=== PATIENT | female | born 1960 | race Caucasian/White ===

== ENCOUNTER → 2018-12-05 | Outpatient (CLI) | payer SELFPAY ==
--- NOTE | 2018-12-05 16:00 | MRI_ITS ---
STUDY: MRI RIGHT MIDFOOT REASON FOR EXAM: Female, 57 years old. RIGHT midfoot charcot foot, pain RIGHT foot TECHNIQUE: Standardized fat and water weighted pulse sequences were obtained in all 3 orthogonal planes. COMPARISON: None. FINDINGS: There is moderate narrowing and subchondral cystic changes and spurring of the second TMT articulation. Moderate to severe degenerative changes are present at the third TMT articulation. The remaining TMT joints are normal. No occult fracture is seen. No soft tissue mass or fluid collection is present. Normal talonavicular articulation. Normal calcaneocuboid articulation. Normal navicular-cuneiform articulations. Normal intercuneiform articulations. Normal first tarsometatarsal articulation. Normal Lisfranc ligament. Normal cuboid fourth and cuboid fifth tarsometatarsal articulation. Normal first through fifth metatarsi. Normal tibialis anterior tendon. Normal extensor hallucis longus tendon. Normal extensor digitorum longus tendons. Normal peroneus longus tendon and distal insertion. Normal peroneus brevis tendon and distal insertion. Normal intrinsic muscles of the mid and forefoot region. Normal extensor digitorum brevis muscle. Normal subcutis adipose space. No demonstrated findings of Charcot arthropathy on this study. MRI/Lower Ext/No Jt/w/o IMPRESSION: 1. There is moderate narrowing and subchondral cystic changes and spurring of the second TMT articulation. 2. Moderate to severe degenerative changes are present at the third TMT articulation. 3. No occult fracture is seen. No soft tissue mass or fluid collection is present. Electronically Signed: Claudio Frey MD at 20:47 EDT , Service support ,
== END | disposition home or self-care (01) ==
PROVIDERS: Referring Provider Podiatrist; Visit Provider Podiatrist
DX: A52.16 Charcot's arthropathy (tabetic) (principal)
CPT/HCPCS: 73718